=== PATIENT | female | born 1995 | race Caucasian/White ===

== ENCOUNTER 2023-12-21 22:06 | Emergency (ER) | payer MEDICAID ==
[~2023-12-21] VITALS: Ht 160 cm; Wt 89.0 kg
[2023-12-21 22:17] VITALS: O2SAT 100
[2023-12-22] MEDS ORDERED: NAPR-681 PO (01:30)
[2023-12-22 01:37] VITALS: BP 132/84; PULSE 87; RESP 18; TEMP 36.89184; O2SAT 99
== END 2023-12-22 01:37 | disposition home or self-care (01) ==
LOC: ER 22:06
DX: S00.03XA Contusion of scalp, initial encounter (principal); M25.562 Pain in left knee; M25.561 Pain in right knee; W10.9XXA Fall (on) (from) unspecified stairs and steps, initial encounter; Y93.89 Activity, other specified; Y92.89 Other specified places as the place of occurrence of the external cause; Y99.8 Other external cause status
CPT/HCPCS: 72100; 81025; 99284